=== PATIENT | male | born 2000 | race Two or more races ===

== ENCOUNTER 2023-12-18 14:59 | Emergency (ER) | payer MEDICAID ==
[~2023-12-18] VITALS: Ht 177.8 cm; Wt 90.0 kg
[2023-12-18] MEDS ORDERED: BACIOIN15 TOP (15:34)
[2023-12-18 16:38] VITALS: BP 126/56; PULSE 56; RESP 16; TEMP 99.2; O2SAT 99
== END 2023-12-18 16:43 | disposition home or self-care (01) ==
LOC: ER 14:59
DX: S31.21XA Laceration without foreign body of penis, initial encounter (principal); Z79.899 Other long term (current) drug therapy; X58.XXXA Exposure to other specified factors, initial encounter; Y93.89 Activity, other specified; Y92.89 Other specified places as the place of occurrence of the external cause; Y99.8 Other external cause status

== ENCOUNTER 2024-07-11 17:55 | Emergency (ER) | payer MEDICAID ==
[~2024-07-11] VITALS: Ht 188 cm; Wt 117.1 kg
[~2024-07-11 17:55] MED LIST: BACIOIN15 TOP
--- NOTE | 2024-07-11 18:59 | ED.PDOC ---
General HPI Comments 23-year-old male presents to the ED chief complaint penile rash. Patient reports he noticed it yesterday, he states it was burning and itchy. Sexually active with 1 partner his girlfriend and states it does not use protection. Does state he retracts his foreskin back and cleaned it after intercourse. Denies fevers, chills, nausea, vomiting, dysuria, urine frequency or any other urinary complaints. Chief Complaint: Penile Problem Time Seen by MD: 18:05 Primary Care Provider: NONE Reviewed notes: Nurses Notes, Medications, Allergies Allergies: Coded Allergies: NO KNOWN ALLERGIES (Unverified , 07/11/24) Home Meds Active Scripts Clotrimazole W/ Betamethasone (Clotrimazole/Betamethason 1-0.05 %) 1 Cre Cre, 1 APPLIC EX BIDAC for 7 Days, #15 GM Apply a thin layer to affected area twice daily times 5-7 days. Warm soapy water prior to applying and pat dry. Prov:GEO JEONG [employer] 07/11/24 Bacitracin Base (Bacitracin) 500 Unit/Gm Oin, 500 UNIT TOP BID, #30 GM Prov:NITHIN KOVACS PAC 12/18/23 Information Source: Patient Mode of Arrival: Ambulatory Past Medical History PAST MEDICAL HISTORY: Denies Surgical History: Denies all surgeries Family History Family History: Reviewed,noncontributory to illness, No family hx of Cancer, No family hx of DM, No family hx of Heart ester, No family hx of HTN, No family hx ofKidney ester, No family hx of Liver ester, No family hx of Lung ester, No family hx of Stroke Social History Smoker: Non-Smoker Alcohol: Denies ETOH Use Drugs: Denies Drug Use Lives In: Home Constitutional: denies: chills, diaphoresis, fatigue, fever, malaise, sweats, weakness, others EENTM: denies: blurred vision, double vision, ear bleeding, ear discharge, ear drainage, ear pain, ear ringing, eye pain, eye redness, hearing loss, mouth pain, mouth swelling, nasal discharge, nose bleeding, nose congestion, nose pain, photophobia, tearing, throat pain, throat swelling, voice changes, others Respiratory: denies: cough, hemoptysis, orthopnea, SOB at rest, shortness of breath, SOB with excertion, stridor, wheezing, others Cardiovascular: denies: chest pain, dizzy spells, diaphoresis, Dyspnea on exertion, edema, irregular heart beat, left arm pain, lightheadedness, palpitations, PND, syncope, others Gastrointestinal: denies: abdomen distended, abdominal pain, blood streaked bowels, constipated, diarrhea, dysphagia, difficulty swallowing, hematemesis, melena, nausea, poor appetite, poor fluid intake, rectal bleeding, rectal pain, vomiting, others Genitourinary: reports: penile sore; denies: burning, dysuria, flank pain, frequency, hematuria, incontinence, penile discharge, pain, testicle pain, testicle swelling, urgency, others Neurological: denies: dizziness, fainting, headache, left sided numbness, left sided weakness, numbness, paresthesia, pre-existing deficit, right sided numbness, right sided weakness, seizure, speech problems, tingling, tremors, weakness, others Musculoskeletal: denies: back pain, gout, joint pain, joint swelling, muscle pain, muscle stiffness, neck pain, others Integumetry: denies: bruises, change in color, change in hair/nails, dryness, laceration, lesions, lumps, rash, wounds, others Allergic/Immunocompromised: denies: Difficulty Healing, Frequent Infections, Hives, Itching, others Hematologic/Lymphatic: denies: anemia, blood clots, easy bleeding, easy bruising, swollen glands, others Endocrine: denies: excessive hunger, excessive sweating, excessive thirst, excessive urination, flushing, intolerance to cold, intolerance to heat, unexplained weight gain, unexplained weight loss, others Psychiatric: denies: anxiety, bipolar disorder, depression, hopeless, panic disorder, schizophrenia, sleepless, suicidal, others Physical Exam General Appearance: No Apparent Distress, Normal HEENT: Pharynx Normal Neck: Full Range of Motion, Non-Tender Respiratory: Lungs Clear, No Respiratory Distress, Normal Breath Sounds Cardiovascular: No Murmur, Normal Peripheral Pulses, Regular Rate/Rhythm Breast Exam: Deferred Gastrointestinal: Non Tender, Soft Genitalia: Penis (Mild patchy erythemic areas on shaft of penis under foreskin no noted drainage) Pelvic: Deferred Rectal: Deferred Extremities: Normal inspection, Normal range of motion Musculoskeletal : Apperance: Normal Neurologic: Alert, antisqueak filler II-XII nml as Tested, No Motor Deficits, Normal Affect, Normal Mood, No Sensory Deficits Cerebellar Function: Normal Reflexes: Normal Skin: Dry, Normal Color, Warm Lymphatic: No Adenopathy Was a procedure done? Was a procedure done?: No Differential Diagnosis Kidney stone (Female): N/A Penile/Scrotal: Phimosis X-Ray, Labs, Meds, VS Vital Signs Date Time Temp Pulse Resp B/P (MAP) Pulse Ox O2 Delivery O2 Flow Rate FiO2 07/11/24 19:04 62 16 98 Room Air 07/11/24 19:04 98.3 62 16 131/62 (85) 98 98.3 07/11/24 18:09 98.3 62 16 131/62 (85) 98 98.3 X-Ray, Labs, Meds, VS Comment Likely fungal trial antifungal cream script to pharmacy advised to take medications as prescribed side effects discussed. Advised to pull foreskin back wash with warm soapy water twice daily then apply the cream as prescribed. Advised to follow up with his PCP in 2 days as necessary. ER return precautions given patient indicates understanding agrees with discharge plan of care. Time of 1ST Reevaluation: 18:25 Reevaluation 1ST: Unchanged Time of 2ND Reevaluation: 19:03 Reevaluation 2ND: Improved Patient Education/Counseling: Diagnosis, Treatment, Prognosis, Need For Follow Up Family Education/Counseling: No Family Present Departure 1 Departure Time of Disposition: 19:03 Impression: Primary Impression: Tinea Disposition: HOME / SELF CARE / HOMELESS Condition: Stable e-Prescriptions Clotrimazole W/ Betamethasone (Clotrimazole/Betamethason 1-0.05 %) 1 Cre Cre 1 APPLIC EX BIDAC for 7 Days, #15 GM Apply a thin layer to affected area twice daily times 5-7 days. Warm soapy water prior to applying and pat dry. Prov: GEO JEONG 07/11/24 Discharged With: Self Critical Care Note Critical Care Time?: No Stability Stability form required: GEO Chu July 11, 2024 18:58
[2024-07-11 19:04] VITALS: BP 131/62; PULSE 62; RESP 16; TEMP 98.3; O2SAT 98
[2024-07-11] MEDS ORDERED: CLOTCRE3 EX (19:06)
== END 2024-07-11 19:20 | disposition home or self-care (01) ==
LOC: ER 17:55
DX: B35.8 Other dermatophytoses (principal)